=== PATIENT | female | born 1965 | race Caucasian/White ===

== ENCOUNTER 2016-12-25 17:05 | Inpatient (IN) | payer SELFPAY ==
[2016-12-25 17:10] VITALS: BMI 20.7
[2016-12-25] MEDS ORDERED: DUONEB 0.5 MG/3 MG ONE ×2 (17:18→18:56)
[2016-12-25] MEDS ORDERED: DUONEB 0.5 MG/3 MG NEB ONE ×2 (17:25→18:57)
--- NOTE | 2016-12-25 17:38 | DR.GENAD ---
HPI - PCP Primary Care Physician: arturo - HPI Comment HPI Comment: PATIENT SAID SHE IS ONE PACK PER DAY SMOKER FOR 20YRS. PAST SEVERAL DAYS PROGRESSIVE SOB AND COUGH THAT GOT WORSE TODAY. SHE WAS IN RESPITRATORY DISTRESS. O2 SAT WAS LOW IN ED. NO FEVER.PRODUCTIVE COUGH WITH YELLOW SPUTUM. - Complaint/Symptoms Chief Complaint Doctors Comments: INCREASING SOB, CHEST TIGHTNESS AND PRODUCTIVE COUGH FOR 4 DAYS. Chief Complaint:: patient stated she has been very short of breath for several days. today is worse and she has a bad cough, she did state she cut back smoking. - Nurses notes reviewed Nurses Notes Review: Yes - Source History Provided: Patient - Mode of Arrival Mode of Arrival: Ambulatory - Timing Onset of Chief Complaint: 12/21/16 Came on: Gradually - Duration Duration: Constant Duration: Days PMH - PMH Past Medical History: No Past Surgical History: Yes Surgical History: Hysterectomy - Family History History of Family Medical Conditions: No - Social History Does patient currently use any type of tobacco product: Yes Have you used tobacco products in the last 12 months: Yes Type of Tobacco Use: Cigarettes How many years tobacco product used: 25 Does any household member use tobacco: Yes Alcohol Use: Rarely Do you use any recreational Drugs:: No Lives With: Family Lives Where: Home - infectious screening In the last 2 months have you had wt loss of >10#?: NO Have you had fever, night sweats or hemotysis?: No Have you traveled outside the country in the last 6 months?: No Isolation: Standard ROS - Review of Systems Constitutional: Weakness, Fatigue. negative: Chills, Diaphoresis, Fever, Loss of Appetite Eyes: No Symptoms Reported. negative: Eye Pain, Discharge ENTM: Nose Congestion. negative: Ear Pain, Nose Discharge, Throat Pain Respiratoy: Productive Cough, Short of Breath, Wheezing. negative: Hemoptysis Cardiovascular: Chest Pain (TIGHTNESS). negative: Edema, Palpitations Gastrointestinal/Abdominal: No Symptoms Reported. negative: Abdominal Pain, Constipation, Diarrhea, Nausea, Vomiting Genitourinary: No Symptoms Reported. negative: Dysuria, Frequency, Hematuria Neurological: Weakness. negative: Headache, Dizziness Musculoskeletal: Muscle Pain Integumentary: No Symptoms Reported Hematologic/Lymphatic: No Symptoms Reported Endocrine: No Symptoms Reported All Other Systems: Reviewed and Negative PE - Vital Signs Vitals: Temperature 98.2 F Pulse Rate 95 Respiratory Rate 18 Blood Pressure 158/83 O2 Sat by Pulse Oximetry 90 - General Limitations: No Limitations General Appearance: Alert - Head Head Exam: Normal Inspection - Eyes Eye exam: Normal Appearance - ENT ENT Exam: Normal External Ear Exam External Ear Exam: Normal External Inspection TM/Canal Exam: Bilateral Normal Nose Exam: Normal Nose Exam Mouth Exam: Normal Inspection Throat Exam: Normal Inspection - Neck Neck Exam: Trachea Midline - Chest Chest Inspection: Symmetric Chest Wall Rise - Respiratory Respiratory Exam: Respiratory Distress Respiratory Exam: Bilateral Wheezing, Bilateral Rhonchi, Upper Wheezing, Upper Rhonchi, Lower Wheezing, Lower Rhonchi - Cardiovascular Cardiovascular Exam: Regular Rate, Normal Rhythm, Normal Heart Sounds - Abdominal Exam Abdominal Exam: Normal Bowel Sounds, Soft. negative: Tenderness - Extremities Extremities Exam: Normal Inspection - Back Back Exam: Normal Inspection - Neurologic Neurological Exam: Alert, Oriented X3 - Psychiatric Psychiatric Exam: Anxious - Skin Skin Exam: Normal Color MDM - Additional Information Additional Information Obtained From: Family - Differential Diagnosis Differential Diagnosis: COPD EXACERBATION, CHF, PNEUMONIA, BRONCHITIS Course - Treatment Treatment: SEE ORDERS. NEB TREATMENT AND IV SOLUMEDROL AND IV LEVAQUIN IN ED. - Reevaluation 1st: Improved - Consultation Consultation Comments: DISCUSS PATIENT WITH DR. CONWAY. HE WILL ADMIT PATIENT. - Education/Counseling Education/Counseling: Patient, Family, Education Educated On: Treatment, Diagnosis ROR - Labs Reviewed Laboratory Results Reviewed?: Yes Result Diagrams: 12/25/16 17:45 12/25/16 17:45 Laboratory: 12/25/16 17:32 Sputum - Expectorated Sputum - Final WBC 12.4 X10^3/uL (3.6-10.0) H 12/25/16 17:45 RBC 5.08 X10^6/uL (3.5-5.4) 12/25/16 17:45 Hgb 17.7 g/dL (12.0-16.0) H 12/25/16 17:45 Hct 51.2 % (36.0-47.0) H 12/25/16 17:45 MCV 100.9 fL (80.0-100.0) H 12/25/16 17:45 MCH 34.9 pg (27.0-34.0) H 12/25/16 17:45 MCHC 34.6 g/dL (33.0-35.0) 12/25/16 17:45 RDW 12.9 % (11.6-16.5) 12/25/16 17:45 Plt Count 138 X10^3/uL (150.0-450.0) L 12/25/16 17:45 MPV 10.3 fL (7.4-11.0) 12/25/16 17:45 Neut % 58.9 % (42.0-75.0) 12/25/16 17:45 Lymph % 31.2 % (21.0-51.0) 12/25/16 17:45 [place] % 8.5 % (0.0-13.0) 12/25/16 17:45 Eos % 0.6 % (0.9-2.9) L 12/25/16 17:45 Baso % 0.8 % (0.2-1.0) 12/25/16 17:45 Neut # 7.3 x10^3/uL (2.2-4.8) H 12/25/16 17:45 Lymph # 3.9 X10^3/uL (1.3-2.9) H 12/25/16 17:45 [place] # 1.1 x10^3/uL (0.3-0.8) H 12/25/16 17:45 Eos # 0.1 x10^3/uL (0.0-0.2) 12/25/16 17:45 Baso # 0.1 X10^3/uL (0.0-0.1) 12/25/16 17:45 Absolute Nucleated RBC 0.2 /100WBC 12/25/16 17:45 Sodium 138 mmol/L (136-145) 12/25/16 17:45 Corrected Sodium 138 mmol/L (136-145) 12/25/16 17:45 Potassium 3.7 mmol/L (3.5-5.1) 12/25/16 17:45 Chloride 104 mmol/L (98-107) 12/25/16 17:45 Carbon Dioxide 23.8 mmol/L (21-32) 12/25/16 17:45 BUN 12 mg/dL (7-18) 12/25/16 17:45 Creatinine 0.63 mg/dL (0.55-1.02) 12/25/16 17:45 Est GFR (MDRD) Af Amer > 60 (>60) 12/25/16 17:45 Est GFR (MDRD) Non-Af > 60 (>60) 12/25/16 17:45 Glucose 112 mg/dL (65-99) H 12/25/16 17:45 Calcium 9.5 mg/dL (8.5-10.1) 12/25/16 17:45 Corrected Calcium TNP 12/25/16 17:45 Total Bilirubin 1.40 mg/dL (0.2-1.0) H 12/25/16 17:45 AST 151 Units/L (15-37) H 12/25/16 17:45 ALT 174 Units/L (12-78) H 12/25/16 17:45 Alkaline Phosphatase 161 Units/L (46-116) H 12/25/16 17:45 B-Natriuretic Peptide 20.8 pg/mL (0-79) 12/25/16 17:45 Total Protein 9.1 g/dL (6.4-8.2) H 12/25/16 17:45 Albumin 4.1 g/dL (3.4-5.0) 12/25/16 17:45 Globulin 5.0 g/dL (2.5-4.5) H 12/25/16 17:45 Albumin/Globulin Ratio 0.8 Ratio (1.1-2.1) L 12/25/16 17:45 Amylase 50 Units/L (25-115) 12/25/16 17:45 Lipase 112 Units/L (73-393) 12/25/16 17:45 - XRAY XRAY Interpreted by: Radiologist XRAY Findings: REPORT DISCUSS WITH PATIENT. - Diagnosis Discharge Problem: COPD with acute bronchitis, Respiratory distress - Discharge Plan Disposition: ADMITTED INPATIENT Condition: Stable - Follow ups/Referrals - Instructions
[2016-12-25 18:03] LABS: BASOPHILS # (AUTO) 0.1 X10^3/uL (0.0-0.1); BASOPHILS % (AUTO) 0.8 % (0.2-1.0); EOSINOPHILS # (AUTO) 0.1 x10^3/uL (0.0-0.2); EOSINOPHILS % (AUTO) 0.6 % (0.9-2.9); HEMATOCRIT 51.2 % (36.0-47.0); HEMOGLOBIN 17.7 g/dL (12.0-16.0); LYMPHOCYTES # (AUTO) 3.9 X10^3/uL (1.3-2.9); LYMPHOCYTES % (AUTO) 31.2 % (21.0-51.0); MEAN CORPUSCULAR HEMOGLOBIN 34.9 pg (27.0-34.0); MEAN CORPUSCULAR HGB CONC 34.6 g/dL (33.0-35.0); MEAN CORPUSCULAR VOLUME 100.9 fL (80.0-100.0); MEAN PLATELET VOLUME 10.3 fL (7.4-11.0); MONOCYTES # (AUTO) 1.1 x10^3/uL (0.3-0.8); MONOCYTES % (AUTO) 8.5 % (0.0-13.0); NEUTROPHILS # (AUTO) 7.3 x10^3/uL (2.2-4.8); NEUTROPHILS % (AUTO) 58.9 % (42.0-75.0); PLATELET COUNT 138 X10^3/uL (150.0-450.0); RED BLOOD COUNT 5.08 X10^6/uL (3.5-5.4); RED CELL DISTRIBUTION WIDTH 12.9 % (11.6-16.5); WHITE BLOOD COUNT 12.4 X10^3/uL (3.6-10.0)
--- NOTE | 2016-12-25 18:03 | RAD ---
HISTORY: Possible pneumonia, cough, shortness of breath Study: Two view chest Comparison: None Findings: Lungs are mildly hyperinflated. The lungs are clear without consolidation, effusion or pneumothorax. The cardiac and mediastinal contours are within normal limits. The soft tissues are unremarkable. IMPRESSION: 1. No acute cardiopulmonary abnormality. Reported By:
[2016-12-25 18:15] LABS: ALANINE AMINOTRANSFERASE 174 Units/L (12-78); ALBUMIN 4.1 g/dL (3.4-5.0); ALKALINE PHOSPHATASE 161 Units/L (46-116); ASPARTATE AMINO TRANSFERASE 151 Units/L (15-37); BLOOD UREA NITROGEN 12 mg/dL (7-18); CALCIUM 9.5 mg/dL (8.5-10.1); CARBON DIOXIDE 23.8 mmol/L (21-32); CHLORIDE 104 mmol/L (98-107); COR NA(FOR HYPERGLY) 138 mmol/L (136-145); CREATININE 0.63 mg/dL (0.55-1.02); GLUCOSE 112 mg/dL (65-99); SODIUM 138 mmol/L (136-145); TOTAL PROTEIN 9.1 g/dL (6.4-8.2); eGFR BLACK RACES > 60 (>60); eGFR NON BLACK RACES > 60 (>60)
[2016-12-25] MEDS ORDERED: SOLU-Medrol 125 MG VIAL IVP ONE (18:52)
[2016-12-25] MEDS ORDERED: LEVAQUIN PREMIX IV 500 MG 500 MG/100 ML BAG IV ONE ×2 (18:54→19:00)
[2016-12-25] MEDS ORDERED: SOLU-Medrol 125 MG VIAL ONE (19:00)
[2016-12-25 19:03] LABS: AMYLASE 50 Units/L (25-115); LIPASE 112 Units/L (73-393)
[2016-12-25] MEDS: DUONEB 0.5 MG/3 MG NEB SCH ×2 (23:09→23:57)
[2016-12-26] MEDS: ULTRAM PO PRN (00:03)
[2016-12-26] MEDS: DUONEB 0.5 MG/3 MG NEB SCH ×5 (04:17→21:38)
[2016-12-26 06:24] LABS: BASOPHILS % (AUTO) 0.3 % (0.2-1.0); HEMATOCRIT 43.7 % (36.0-47.0); HEMOGLOBIN 15.4 g/dL (12.0-16.0); LYMPHOCYTES # (AUTO) 1.5 X10^3/uL (1.3-2.9); LYMPHOCYTES % (AUTO) 16.6 % (21.0-51.0); MEAN CORPUSCULAR HEMOGLOBIN 35.3 pg (27.0-34.0); MEAN CORPUSCULAR HGB CONC 35.2 g/dL (33.0-35.0); MEAN CORPUSCULAR VOLUME 100.3 fL (80.0-100.0); MEAN PLATELET VOLUME 10.6 fL (7.4-11.0); MONOCYTES # (AUTO) 0.5 x10^3/uL (0.3-0.8); MONOCYTES % (AUTO) 5.6 % (0.0-13.0); NEUTROPHILS # (AUTO) 6.9 x10^3/uL (2.2-4.8); NEUTROPHILS % (AUTO) 77.5 % (42.0-75.0); PLATELET COUNT 98 X10^3/uL (150.0-450.0); RED BLOOD COUNT 4.36 X10^6/uL (3.5-5.4); RED CELL DISTRIBUTION WIDTH 12.8 % (11.6-16.5); WHITE BLOOD COUNT 8.9 X10^3/uL (3.6-10.0)
[2016-12-26] MEDS: SOLU-Medrol 40 MG VIAL IVP SCH ×2 (08:44→17:37)
[2016-12-26] MEDS: LEVAQUIN PREMIX IV 500 MG 500 MG/100 ML BAG IV SCH (08:45)
[2016-12-26] MEDS ORDERED: NS 250 ML IV 250 ML IV ONE (08:46)
[2016-12-26 10:40] LABS: BILIRUBIN,URINE NEGATIVE (NEGATIVE); BLOOD/HEMOGLOBIN,URINE 1+ (NEGATIVE); GLUCOSE, URINE NEGATIVE (NEGATIVE); KETONES,URINE NEGATIVE (NEGATIVE); LEUKOCYTE ESTERASE ,URINE NEGATIVE (NEGATIVE); NITRITES,URINE NEGATIVE (NEGATIVE); PROTEIN,URINE 1+ (NEGATIVE); UROBILINOGEN,URINE 3+ (NORMAL)
[2016-12-26 11:05] LABS: APPEARANCE,URINE CLEAR (CLEAR); BACTERIA,URINE TRACE /HPF (NEGATIVE); COLOR,URINE AMBER (YELLOW); RBC,URINE RARE /HPF (NEGATIVE); SQUAMOUS EPITHELIAL CELL,UR FEW /HPF (NEGATIVE)
[2016-12-26] MEDS ORDERED: TUSSIONEX PENNKINETIC SUSP PO PRN (18:57)
--- NOTE | 2016-12-26 19:03 | DR.H&P ---
H&P - History & Physical for Day of: H&P Date: 12/25/16 - Chief Complaint Chief Complaint: SOB - Allergies Allergies/Adverse Reactions: Allergies Allergy/AdvReac Type Severity Reaction Status Date / Time No Known Drug Allergy Allergy Verified 12/25/16 17:06 - History of Present Illness History of Present Illness: 51 WF ADMITTED FROM ER AFTER PRESENTING WITH CO CCC WITH SOB. PT HAS COPD, USING INHALER AT HOME WITHOUT IMPROVEMENT. PT ALSO CO NAUSEA WITH EPIGASTRIC PAIN, DIFFICULTY WITH KEEPING FOOD DOWN, PT WILL "SPIT UP " FOOD, OR FEELS LIKE IT GETS STUCK IN THROAT. PLAN TO ADMIT FOR TREATMENT OF COPD EXACERBATION. WILL REPEAT AM LABS, IV ATBX, RESP THERAPY - Past Medical History Past Medical History: Anxiety, Hypertension - Past Surgical History Surgical History: Hysterectomy - Social History Does patient currently use any type of tobacco product: Yes Have you used tobacco products in the last 12 months: Yes Type of Tobacco Use: Cigarettes How many years tobacco product used: 25 Does any household member use tobacco: Yes Alcohol Use: DAILY Drug Use: None - Medications Home Medications: NK [NK] 12/25/16 [History Confirmed 12/26/16] - Review of Systems Constitutional: Chills, Weakness Eyes: No Symptoms Reported ENT: Throat Pain Respiratory: Cough, Shortness of Breath, Wheezing Cardiovascular: No Symptoms Reported Gastrointestinal: Nausea, Abdominal Pain Genitourinary: No Symptoms Reported Musculoskeletal: No Symptoms Reported Skin: No Symptoms Reported Neurological: No Symptoms Reported - Physical Exam Vital Signs: Temperature 98.2 F Pulse Rate [Right Radial] 96 Pulse Rate 82 Respiratory Rate 20 Blood Pressure [Right Arm] 137/78 O2 Sat by Pulse Oximetry 91 Oriented: Normal Eyes: Normal Ear: Normal Nose: Normal Throat: Dry Respiratory: Wheezes Throughout Cardiovascular: Normal : Normal Auscultation: Bowel Sounds: Normal Palpation: Normal Tenderness: RUQ, Epigastric Skin: Normal Musculoskeletal: Normal Psychiatric: Anxiety Speech Pattern: Clear, Appropriate - Assessment/Plan (1) GERD (gastroesophageal reflux disease) Qualifiers: Esophagitis presence: E Status: Acute Plan: ADMIT, RESP THERAPY, IV ATBX. BLOOD AND SPUTUM CULTURES. MONITOR, SUPPLEMENTAL O2 (2) COPD with acute bronchitis Status: Acute (3) Respiratory distress Status: Acute
[2016-12-26] MEDS: RESTORIL CAP 15 MG PO PRN (21:15)
[2016-12-26] MEDS: PROTONIX INJ 40 MG VIAL IVP SCH (21:15)
[2016-12-27] MEDS: SOLU-Medrol 40 MG VIAL IVP SCH ×3 (00:22→16:58)
[2016-12-27] MEDS: DUONEB 0.5 MG/3 MG NEB SCH ×6 (01:51→20:36)
[2016-12-27 06:18] LABS: BASOPHILS % (AUTO) 0.1 % (0.2-1.0); HEMATOCRIT 43.7 % (36.0-47.0); HEMOGLOBIN 15.2 g/dL (12.0-16.0); LYMPHOCYTES # (AUTO) 1.1 X10^3/uL (1.3-2.9); LYMPHOCYTES % (AUTO) 11.9 % (21.0-51.0); MEAN CORPUSCULAR HGB CONC 34.7 g/dL (33.0-35.0); MEAN CORPUSCULAR VOLUME 100.9 fL (80.0-100.0); MEAN PLATELET VOLUME 10.9 fL (7.4-11.0); MONOCYTES # (AUTO) 0.3 x10^3/uL (0.3-0.8); MONOCYTES % (AUTO) 3.7 % (0.0-13.0); NEUTROPHILS # (AUTO) 7.7 x10^3/uL (2.2-4.8); NEUTROPHILS % (AUTO) 84.3 % (42.0-75.0); PLATELET COUNT 98 X10^3/uL (150.0-450.0); RED BLOOD COUNT 4.33 X10^6/uL (3.5-5.4); RED CELL DISTRIBUTION WIDTH 12.7 % (11.6-16.5); WHITE BLOOD COUNT 9.1 X10^3/uL (3.6-10.0)
--- NOTE | 2016-12-27 06:27 | RAD ---
HISTORY: COPD, bronchitis, respiratory distress Study: Chest one view Comparison: December 25, 2016 Findings: The heart is within normal limits in size. The sherman are normal. The lungs are mildly hyperinflated b ut free of acute alveolar infiltrates. No pleural effusions are identified. The bony thorax is unrem arkable. IMPRESSION: Lungs mildly hyperinflated but clear Reported By:
[2016-12-27 06:31] LABS: ALANINE AMINOTRANSFERASE 134 Units/L (12-78); ALBUMIN 3.3 g/dL (3.4-5.0); ALKALINE PHOSPHATASE 151 Units/L (46-116); ASPARTATE AMINO TRANSFERASE 85 Units/L (15-37); BLOOD UREA NITROGEN 12 mg/dL (7-18); CALCIUM 8.9 mg/dL (8.5-10.1); CARBON DIOXIDE 22.3 mmol/L (21-32); CHLORIDE 105 mmol/L (98-107); COR CA(FOR HYPOALB) 9.5 mg/dL (8.5-10.1); COR NA(FOR HYPERGLY) 142 mmol/L (136-145); CREATININE 0.72 mg/dL (0.55-1.02); GLUCOSE 181 mg/dL (65-99); SODIUM 140 mmol/L (136-145); TOTAL PROTEIN 7.5 g/dL (6.4-8.2); eGFR BLACK RACES > 60 (>60); eGFR NON BLACK RACES > 60 (>60)
--- NOTE | 2016-12-27 07:01 | US ---
HISTORY: Right upper quadrant and epigastric pain Study: Right upper quadrant ultra sound Comparison: None Technique: Multiple grayscale sonographic images were obtained. Findings: The liver is normal in size and configuration without cyst mass or biliary ductal dilatation. No gal lstones are present within the gallbladder. Gallbladder wall thickness was normal. The common duct m easured 3 millimeters. The right kidney measured 10.1 x 5.9 x 4.3 centimeters and demonstrated no so lid masses, hydronephrosis, stones, or perinephric fluid collections. The pancreas was not well demo nstrated. IMPRESSION: No significant abnormality identified Reported By:
[2016-12-27] MEDS: LEVAQUIN PREMIX IV 500 MG 500 MG/100 ML BAG IV SCH (08:59)
[2016-12-27] MEDS: PROTONIX INJ 40 MG VIAL IVP SCH (08:59)
--- NOTE | 2016-12-27 13:00 | PCM.PROG ---
Progress Note - Progress Note for Day of Date: 12/26/16 - Subjective Subjective: SHORTNESS OF BREATH, N/V - Past Medical Family Social History Past Med/Fam/Surg Hx: No changes since H&P Allergies: Allergies No Known Drug Allergy Allergy (Verified 12/25/16 17:06) - Review of Systems ROS: No change since H&P - Vital Signs and I&O's Vital Signs: Temperature 97.7 F Pulse Rate [Right Radial] 94 Pulse Rate 86 Respiratory Rate 20 Blood Pressure [Right Arm] 134/73 O2 Sat by Pulse Oximetry 93 Intake and Output: Intake & Output 12/25/16 12/26/16 12/27/16 12/28/16 11:59 11:59 11:59 11:59 Intake Total 240 1040 Balance 240 1040 - Physical Exam Oriented: Normal Eyes: Normal Ear: Normal Nose: Normal Throat: Dry Respiratory: Diminished, Wheezes, Rhonchi Cardiovascular: Normal : Normal Auscultation: Bowel Sounds: Normal Tenderness: RUQ, Epigastric Skin: Normal Musculoskeletal: Normal Psychiatric: Anxiety Speech Pattern: Clear, Appropriate - Laboratory and Diagnostics Result Diagrams: 12/27/16 05:15 12/27/16 05:15 Labs: Laboratory WBC 9.1 X10^3/uL (3.6-10.0) 12/27/16 05:15 RBC 4.33 X10^6/uL (3.5-5.4) 12/27/16 05:15 Hgb 15.2 g/dL (12.0-16.0) 12/27/16 05:15 Hct 43.7 % (36.0-47.0) 12/27/16 05:15 MCV 100.9 fL (80.0-100.0) H 12/27/16 05:15 MCH 35.0 pg (27.0-34.0) H 12/27/16 05:15 MCHC 34.7 g/dL (33.0-35.0) 12/27/16 05:15 RDW 12.7 % (11.6-16.5) 12/27/16 05:15 Plt Count 98 X10^3/uL (150.0-450.0) L 12/27/16 05:15 MPV 10.9 fL (7.4-11.0) 12/27/16 05:15 Neut % 84.3 % (42.0-75.0) H 12/27/16 05:15 Lymph % 11.9 % (21.0-51.0) L 12/27/16 05:15 [place] % 3.7 % (0.0-13.0) 12/27/16 05:15 Eos % 0.0 % (0.9-2.9) L 12/27/16 05:15 Baso % 0.1 % (0.2-1.0) L 12/27/16 05:15 Neut # 7.7 x10^3/uL (2.2-4.8) H 12/27/16 05:15 Lymph # 1.1 X10^3/uL (1.3-2.9) L 12/27/16 05:15 [place] # 0.3 x10^3/uL (0.3-0.8) 12/27/16 05:15 Eos # 0.0 x10^3/uL (0.0-0.2) 12/27/16 05:15 Baso # 0.0 X10^3/uL (0.0-0.1) 12/27/16 05:15 Absolute Nucleated RBC 0.0 /100WBC 12/27/16 05:15 Sodium 140 mmol/L (136-145) 12/27/16 05:15 Corrected Sodium 142 mmol/L (136-145) 12/27/16 05:15 Potassium 3.9 mmol/L (3.5-5.1) 12/27/16 05:15 Chloride 105 mmol/L (98-107) 12/27/16 05:15 Carbon Dioxide 22.3 mmol/L (21-32) 12/27/16 05:15 BUN 12 mg/dL (7-18) 12/27/16 05:15 Creatinine 0.72 mg/dL (0.55-1.02) 12/27/16 05:15 Est GFR (MDRD) Af Amer > 60 (>60) 12/27/16 05:15 Est GFR (MDRD) Non-Af > 60 (>60) 12/27/16 05:15 Glucose 181 mg/dL (65-99) H 12/27/16 05:15 Calcium 8.9 mg/dL (8.5-10.1) 12/27/16 05:15 Corrected Calcium 9.5 mg/dL (8.5-10.1) 12/27/16 05:15 Total Bilirubin 0.50 mg/dL (0.2-1.0) 12/27/16 05:15 AST 85 Units/L (15-37) H 12/27/16 05:15 ALT 134 Units/L (12-78) H 12/27/16 05:15 Alkaline Phosphatase 151 Units/L (46-116) H 12/27/16 05:15 B-Natriuretic Peptide 20.8 pg/mL (0-79) 12/25/16 17:45 Total Protein 7.5 g/dL (6.4-8.2) 12/27/16 05:15 Albumin 3.3 g/dL (3.4-5.0) L 12/27/16 05:15 Globulin 4.2 g/dL (2.5-4.5) 12/27/16 05:15 Albumin/Globulin Ratio 0.8 Ratio (1.1-2.1) L 12/27/16 05:15 Amylase 50 Units/L (25-115) 12/25/16 17:45 Lipase 112 Units/L (73-393) 12/25/16 17:45 Specimen Type Clean catch urine 12/26/16 10:16 Urine Color Swetha (YELLOW) 12/26/16 10:16 Urine Appearance Clear (CLEAR) 12/26/16 10:16 Urine pH 5.0 (5.0 - 8.0) 12/26/16 10:16 Ur Specific [place] 1.025 (1.000-1.030) 12/26/16 10:16 Urine Protein 1+ (NEGATIVE) 12/26/16 10:16 Urine Glucose (UA) Negative (NEGATIVE) 12/26/16 10:16 Urine Ketones Negative (NEGATIVE) 12/26/16 10:16 Urine Occult Blood 1+ (NEGATIVE) 12/26/16 10:16 Urine Nitrite Negative (NEGATIVE) 12/26/16 10:16 Urine Bilirubin Negative (NEGATIVE) 12/26/16 10:16 Urine Urobilinogen 3+ (NORMAL) 12/26/16 10:16 Ur Leukocyte Esterase Negative (NEGATIVE) 12/26/16 10:16 Urine RBC Rare /HPF (NEGATIVE) 12/26/16 10:16 Urine WBC None seen /HPF (NEGATIVE) 12/26/16 10:16 Ur Squamous Epith Cells Few /HPF (NEGATIVE) 12/26/16 10:16 Urine Bacteria Trace /HPF (NEGATIVE) 12/26/16 10:16 Ur Culture Indicated? No/not indicated 12/26/16 10:16 Urine Opiates Screen Negative (NEG=<300) 12/26/16 10:16 Urine Methadone Screen Negative (NEG=<300) 12/26/16 10:16 Ur Barbiturates Screen Negative (NEG=<200) 12/26/16 10:16 Ur Phencyclidine Scrn Negative (NEG=<25) 12/26/16 10:16 Ur Amphetamines Screen Negative (NEG=<1000) 12/26/16 10:16 U Benzodiazepines Scrn Negative (NEG=<200) 12/26/16 10:16 Urine Cocaine Screen Negative (NEG=<300) 12/26/16 10:16 U Marijuana (THC) Screen Positive (NEG=<50) A 12/26/16 10:16 - Plan (1) GERD (gastroesophageal reflux disease) Status: Acute Qualifiers: Esophagitis presence: E Plan: CONTINUE RESP THERAPY, IV ATBX. BLOOD AND SPUTUM CULTURES PENDING. MONITOR, SUPPLEMENTAL O2 (2) COPD with acute bronchitis Status: Acute (3) Respiratory distress Status: Acute Plan: CT CHEST FOR SOB (4) Epigastric abdominal pain Status: Acute Plan: GB US Q AM (5) Nausea & vomiting Status: Acute Qualifiers: Vomiting type: V Vomiting Intractability: V Plan: SYMPTOM CONTROL, PPI. GB STUDIES
--- NOTE | 2016-12-27 13:08 | PCM.PROG ---
Progress Note - Progress Note for Day of Date: 12/27/16 - Subjective Subjective: SHORTNESS OF BREATH IMPROVING, N/V, RUQ PAIN AND DIARRHEA - Past Medical Family Social History Past Med/Fam/Surg Hx: No changes since H&P Allergies: Allergies No Known Drug Allergy Allergy (Verified 12/25/16 17:06) - Review of Systems ROS: No change since H&P - Vital Signs and I&O's Vital Signs: Temperature 97.7 F Pulse Rate [Right Radial] 94 Pulse Rate 86 Respiratory Rate 20 Blood Pressure [Right Arm] 134/73 O2 Sat by Pulse Oximetry 93 Intake and Output: Intake & Output 12/25/16 12/26/16 12/27/16 12/28/16 11:59 11:59 11:59 11:59 Intake Total 240 1040 Balance 240 1040 - Physical Exam Oriented: Normal Eyes: Normal Ear: Normal Nose: Normal Throat: Dry Respiratory: Diminished, Wheezes, Rhonchi Cardiovascular: Normal : Normal Auscultation: Bowel Sounds: Normal Tenderness: RUQ, Epigastric Skin: Normal Musculoskeletal: Normal Psychiatric: Anxiety Speech Pattern: Clear, Appropriate - Laboratory and Diagnostics Result Diagrams: 12/27/16 05:15 12/27/16 05:15 Labs: Laboratory WBC 9.1 X10^3/uL (3.6-10.0) 12/27/16 05:15 RBC 4.33 X10^6/uL (3.5-5.4) 12/27/16 05:15 Hgb 15.2 g/dL (12.0-16.0) 12/27/16 05:15 Hct 43.7 % (36.0-47.0) 12/27/16 05:15 MCV 100.9 fL (80.0-100.0) H 12/27/16 05:15 MCH 35.0 pg (27.0-34.0) H 12/27/16 05:15 MCHC 34.7 g/dL (33.0-35.0) 12/27/16 05:15 RDW 12.7 % (11.6-16.5) 12/27/16 05:15 Plt Count 98 X10^3/uL (150.0-450.0) L 12/27/16 05:15 MPV 10.9 fL (7.4-11.0) 12/27/16 05:15 Neut % 84.3 % (42.0-75.0) H 12/27/16 05:15 Lymph % 11.9 % (21.0-51.0) L 12/27/16 05:15 [place] % 3.7 % (0.0-13.0) 12/27/16 05:15 Eos % 0.0 % (0.9-2.9) L 12/27/16 05:15 Baso % 0.1 % (0.2-1.0) L 12/27/16 05:15 Neut # 7.7 x10^3/uL (2.2-4.8) H 12/27/16 05:15 Lymph # 1.1 X10^3/uL (1.3-2.9) L 12/27/16 05:15 [place] # 0.3 x10^3/uL (0.3-0.8) 12/27/16 05:15 Eos # 0.0 x10^3/uL (0.0-0.2) 12/27/16 05:15 Baso # 0.0 X10^3/uL (0.0-0.1) 12/27/16 05:15 Absolute Nucleated RBC 0.0 /100WBC 12/27/16 05:15 Sodium 140 mmol/L (136-145) 12/27/16 05:15 Corrected Sodium 142 mmol/L (136-145) 12/27/16 05:15 Potassium 3.9 mmol/L (3.5-5.1) 12/27/16 05:15 Chloride 105 mmol/L (98-107) 12/27/16 05:15 Carbon Dioxide 22.3 mmol/L (21-32) 12/27/16 05:15 BUN 12 mg/dL (7-18) 12/27/16 05:15 Creatinine 0.72 mg/dL (0.55-1.02) 12/27/16 05:15 Est GFR (MDRD) Af Amer > 60 (>60) 12/27/16 05:15 Est GFR (MDRD) Non-Af > 60 (>60) 12/27/16 05:15 Glucose 181 mg/dL (65-99) H 12/27/16 05:15 Calcium 8.9 mg/dL (8.5-10.1) 12/27/16 05:15 Corrected Calcium 9.5 mg/dL (8.5-10.1) 12/27/16 05:15 Total Bilirubin 0.50 mg/dL (0.2-1.0) 12/27/16 05:15 AST 85 Units/L (15-37) H 12/27/16 05:15 ALT 134 Units/L (12-78) H 12/27/16 05:15 Alkaline Phosphatase 151 Units/L (46-116) H 12/27/16 05:15 B-Natriuretic Peptide 20.8 pg/mL (0-79) 12/25/16 17:45 Total Protein 7.5 g/dL (6.4-8.2) 12/27/16 05:15 Albumin 3.3 g/dL (3.4-5.0) L 12/27/16 05:15 Globulin 4.2 g/dL (2.5-4.5) 12/27/16 05:15 Albumin/Globulin Ratio 0.8 Ratio (1.1-2.1) L 12/27/16 05:15 Amylase 50 Units/L (25-115) 12/25/16 17:45 Lipase 112 Units/L (73-393) 12/25/16 17:45 Specimen Type Clean catch urine 12/26/16 10:16 Urine Color Swetha (YELLOW) 12/26/16 10:16 Urine Appearance Clear (CLEAR) 12/26/16 10:16 Urine pH 5.0 (5.0 - 8.0) 12/26/16 10:16 Ur Specific [place] 1.025 (1.000-1.030) 12/26/16 10:16 Urine Protein 1+ (NEGATIVE) 12/26/16 10:16 Urine Glucose (UA) Negative (NEGATIVE) 12/26/16 10:16 Urine Ketones Negative (NEGATIVE) 12/26/16 10:16 Urine Occult Blood 1+ (NEGATIVE) 12/26/16 10:16 Urine Nitrite Negative (NEGATIVE) 12/26/16 10:16 Urine Bilirubin Negative (NEGATIVE) 12/26/16 10:16 Urine Urobilinogen 3+ (NORMAL) 12/26/16 10:16 Ur Leukocyte Esterase Negative (NEGATIVE) 12/26/16 10:16 Urine RBC Rare /HPF (NEGATIVE) 12/26/16 10:16 Urine WBC None seen /HPF (NEGATIVE) 12/26/16 10:16 Ur Squamous Epith Cells Few /HPF (NEGATIVE) 12/26/16 10:16 Urine Bacteria Trace /HPF (NEGATIVE) 12/26/16 10:16 Ur Culture Indicated? No/not indicated 12/26/16 10:16 Urine Opiates Screen Negative (NEG=<300) 12/26/16 10:16 Urine Methadone Screen Negative (NEG=<300) 12/26/16 10:16 Ur Barbiturates Screen Negative (NEG=<200) 12/26/16 10:16 Ur Phencyclidine Scrn Negative (NEG=<25) 12/26/16 10:16 Ur Amphetamines Screen Negative (NEG=<1000) 12/26/16 10:16 U Benzodiazepines Scrn Negative (NEG=<200) 12/26/16 10:16 Urine Cocaine Screen Negative (NEG=<300) 12/26/16 10:16 U Marijuana (THC) Screen Positive (NEG=<50) A 12/26/16 10:16 - Plan (1) COPD with acute bronchitis Status: Acute Plan: IV ATBX, IV STEROIDS. RESP THERAPY, PULMONARY TOILETING. SUPPLEMENTAL O2 (2) GERD (gastroesophageal reflux disease) Status: Acute Qualifiers: Esophagitis presence: E Plan: PPI, NAUSEA CONTROL (3) Respiratory distress Status: Acute Plan: CT CHEST FOR SOB (4) Epigastric abdominal pain Status: Acute Plan: GB US Q AM (5) Nausea & vomiting Status: Acute Qualifiers: Vomiting type: V Vomiting Intractability: V Plan: SYMPTOM CONTROL, PPI. GB STUDIES
[2016-12-27] MEDS: ULTRAM PO PRN (20:51)
[2016-12-27] MEDS: RESTORIL CAP 15 MG PO PRN (20:52)
[2016-12-28] MEDS: DUONEB 0.5 MG/3 MG NEB SCH ×6 (00:38→21:13)
[2016-12-28] MEDS: SOLU-Medrol 40 MG VIAL IVP SCH ×3 (00:56→16:31)
[2016-12-28] MEDS: PROTONIX INJ 40 MG VIAL IVP SCH ×2 (09:12→20:56)
[2016-12-28] MEDS: ROBITUSSIN DM PO SCH ×4 (09:14→20:55)
[2016-12-28] MEDS: LEVAQUIN PREMIX IV 500 MG 500 MG/100 ML BAG IV SCH (09:14)
--- NOTE | 2016-12-28 13:31 | NM ---
HISTORY: Right upper quadrant pain, food intolerance, and nausea, vomiting, diarrhea. Study: Nuclear medicine HIDA scan with ejection fraction Comparison: Right upper quadrant ultrasound dated December 27, 2016. Technique: Multiple scintigraphic images of the abdomen were obtained the intravenous administration of 5.2 mCi of technetium labeled Choletec. Following distention of the gallbladder with radiotracer patient was given an 8 oz bottle of Ensure. An estimated gallbladder ejection fraction was calculated based on the physiologic response of thi s infusion. Findings: Homogeneous uptake of radiotracer is seen throughout the liver. This intrabiliary ductal system is observed normally. The common hepatic and common bile duct grossly appear unremarkable with normal biliary-bowel transit. The gallbladder is observed to fill normally. After the bottle of Ensure, a normal gallbladder ejection fraction of 55% (normal > 35%) is observed . IMPRESSION: 1. Normal hepatobiliary imaging scan. 2. Normal gallbladder ejection fraction. Reported By:
[2016-12-28] MEDS ORDERED: LR 1000 ML IV 1,000 ML IV ONE (15:27)
[2016-12-28] MEDS ORDERED: DIPRIVAN VIAL 20 ML ONE (15:36)
[2016-12-28] MEDS ORDERED: XYLOCAINE 2 % (PLAIN) ONE (15:36)
[2016-12-28] MEDS ORDERED: DIPRIVAN VIAL 10 ML ONE (15:49)
[2016-12-28] MEDS: RESTORIL CAP 15 MG PO PRN (20:55)
[2016-12-28] MEDS: ULTRAM PO PRN (20:55)
[2016-12-29] MEDS: DUONEB 0.5 MG/3 MG NEB SCH ×4 (00:49→12:22)
[2016-12-29] MEDS: SOLU-Medrol 40 MG VIAL IVP SCH ×2 (01:15→08:49)
[2016-12-29 05:35] LABS: ALANINE AMINOTRANSFERASE 196 Units/L (12-78); ALKALINE PHOSPHATASE 140 Units/L (46-116); ASPARTATE AMINO TRANSFERASE 128 Units/L (15-37); BASOPHILS % (AUTO) 0.1 % (0.2-1.0); BLOOD UREA NITROGEN 11 mg/dL (7-18); CALCIUM 8.6 mg/dL (8.5-10.1); CARBON DIOXIDE 24.4 mmol/L (21-32); CHLORIDE 106 mmol/L (98-107); COR CA(FOR HYPOALB) 9.4 mg/dL (8.5-10.1); COR NA(FOR HYPERGLY) 141 mmol/L (136-145); CREATININE 0.59 mg/dL (0.55-1.02); GLUCOSE 147 mg/dL (65-99); HEMATOCRIT 42.1 % (36.0-47.0); HEMOGLOBIN 14.4 g/dL (12.0-16.0); LYMPHOCYTES % (AUTO) 12.8 % (21.0-51.0); MEAN CORPUSCULAR HEMOGLOBIN 34.8 pg (27.0-34.0); MEAN CORPUSCULAR HGB CONC 34.2 g/dL (33.0-35.0); MEAN CORPUSCULAR VOLUME 101.5 fL (80.0-100.0); MEAN PLATELET VOLUME 10.4 fL (7.4-11.0); MONOCYTES # (AUTO) 0.4 x10^3/uL (0.3-0.8); MONOCYTES % (AUTO) 5.4 % (0.0-13.0); NEUTROPHILS # (AUTO) 6.2 x10^3/uL (2.2-4.8); NEUTROPHILS % (AUTO) 81.7 % (42.0-75.0); PLATELET COUNT 92 X10^3/uL (150.0-450.0); RED BLOOD COUNT 4.14 X10^6/uL (3.5-5.4); RED CELL DISTRIBUTION WIDTH 13.2 % (11.6-16.5); SODIUM 140 mmol/L (136-145); TOTAL PROTEIN 6.7 g/dL (6.4-8.2); WHITE BLOOD COUNT 7.5 X10^3/uL (3.6-10.0); eGFR BLACK RACES > 60 (>60); eGFR NON BLACK RACES > 60 (>60)
[2016-12-29] MEDS: PROTONIX INJ 40 MG VIAL IVP SCH (08:48)
[2016-12-29] MEDS: LEVAQUIN PREMIX IV 500 MG 500 MG/100 ML BAG IV SCH (08:48)
[2016-12-29] MEDS: ROBITUSSIN DM PO SCH ×2 (08:49→13:28)
[2016-12-29 12:34] VITALS: BP 130/71
== END 2016-12-29 15:48 | disposition home or self-care (01) | DRG 192 ==
LOC: ER 17:28 → OBS 20:40 → OBSVTOIN 12-27 08:30 → INTOOBSV 12-27 16:26 → OBSVTOIN 12-27 16:26 → MED/SURG 12-27 17:55
PROVIDERS: ADMIT Internal Medicine; ATTEND Internal Medicine
PROC: 0D757ZZ Dilation of Esophagus, Via Natural or Artificial Opening (ICD-10-PCS; 2016-12-28)
PROC: 0DB68ZX Excision of Stomach, Via Natural or Artificial Opening Endoscopic, Diagnostic (ICD-10-PCS; principal; 2016-12-28 19:00)
DX: J44.1 Chronic obstructive pulmonary disease with (acute) exacerbation (principal); J20.9 Acute bronchitis, unspecified; J44.0 Chronic obstructive pulmonary disease with (acute) lower respiratory infection; Z72.0 Tobacco use; R07.89 Other chest pain; J20.8 Acute bronchitis due to other specified organisms; R06.02 Shortness of breath; R10.13 Epigastric pain; F41.8 Other specified anxiety disorders; I10 Essential (primary) hypertension; K21.9 Gastro-esophageal reflux disease without esophagitis; R11.2 Nausea with vomiting, unspecified; B95.3 Streptococcus pneumoniae as the cause of diseases classified elsewhere
CPT/HCPCS: 36415; 71010; 71020; 76705; 78227; 80053; 80307; 81001; 82150; 83690; 83880; 85025; 87040; 87070; 87077; 87186; 87205; 93005; 93010; 94640; 94760; 96365; 96374; 96375; 99284; A4222; C9113; A4217; G0378; G0434; J1956; J2001; J2920; J2930; J3490; J7120; J7620

== ENCOUNTER 2017-06-12 10:39 | Observation (INO) | payer SELFPAY ==
[2017-06-12 10:47] VITALS: BMI 20.7
[2017-06-12] MEDS ORDERED: SOLU-Medrol 125 MG VIAL ONE (11:09)
[2017-06-12] MEDS ORDERED: DUONEB 0.5 MG/3 MG ONE (11:12)
[2017-06-12] MEDS ORDERED: SOLU-Medrol 125 MG VIAL IVP ONE (11:13)
[2017-06-12] MEDS ORDERED: DUONEB 0.5 MG/3 MG NEB ONE ×2 (11:13→15:24)
--- NOTE | 2017-06-12 11:18 | DR.SOBA ---
HPI - Time Seen Time seen: 11:15 - Primary Care Physician Primary Care Physician: barney - HPI Comment HPI Comment: HISTORY BELOW. - Complaints Chief Complaint Doctors Comments: INCREASING SOB TIMES FEW DAYS. WORSE TODAY. TODAY, AMS ALSO. FEVER REPOETED. COUGHING AND CONGESTED. Chief Complaint:: sob x 2-3 days - Reviewed Nurses Notes Reviewed: Yes - Source History Provided: Patient, Family Member - Mode of Arrival Mode of Arrival: Ambulatory - Timing Onset of Chief Complaint: 06/09/17 - Duration Duration: Days - Context Onset:: At Rest, With Light Exertion PE Risk Factors:: None History of:: COPD Currently on:: Inhaled Bronchodilators Prehospital Care:: None - Modifying Factors Worsens:: Nothing Improves:: Nothing - Associated Signs and Symptoms Associated Signs and Symptoms: Fever, Wheeze, Cough, Nasal Congestion, Chest Pain, Leg Swelling. denies: Calf Pain - If Chest Pain Quality: Sharp Location: Right Lower Chest - If Cough Cough: Nonproductive PMH - PMH Past Medical History: Yes Past Medical History: Anxiety, Hypertension Past Surgical History: Yes Surgical History: Hysterectomy - Family History History of Family Medical Conditions: No - Social History Does patient currently use any type of tobacco product: Yes Have you used tobacco products in the last 12 months: Yes Type of Tobacco Use: Cigarettes Do you use any recreational Drugs:: No - infectious screening In the last 2 months have you had wt loss of >10#?: NO Have you had fever, night sweats or hemotysis?: No Have you traveled outside the country in the last 6 months?: No Isolation: Standard ROS - Review of Systems Constitutional: Weakness, Fatigue Eyes: negative: Eye Pain, Discharge ENTM: Nose Congestion. negative: Ear Pain, Nose Discharge, Throat Pain Respiratoy: Non-Productive Cough Gastrointestinal/Abdominal: negative: Abdominal Pain, Diarrhea, Nausea, Vomiting Genitourinary: negative: Dysuria, Hematuria Musculoskeletal: Back Pain Integumentary: Change in Color Hematologic/Lymphatic: Easy Bleeding, Easy Bruising All Other Systems: Reviewed and Negative PE - Vital Signs Vitals: Temperature 99.5 F Pulse Rate [Apical] 107 Pulse Rate 97 Respiratory Rate 17 Blood Pressure [Right Arm] 112/53 Blood Pressure 111/66 O2 Sat by Pulse Oximetry 92 - General Limitations: Altered Mental Status General Appearance: Alert - Head Head Exam: Normal Inspection - Eyes Eye exam: Normal Appearance - ENT ENT Exam: Normal External Ear Exam - Neck Neck Exam: Trachea Midline - Chest Chest Inspection: Symmetric Chest Wall Rise - Respiratory Respiratory Exam: Normal Lung Sounds Bilat, Accessory Muscle Use, Respiratory Distress Respiratory Exam: Bilateral Wheezing, Bilateral Rhonchi, Upper Wheezing, Upper Rhonchi, Lower Wheezing, Lower Rhonchi - Cardiovascular Cardiovascular Exam: Regular Rate, Normal Rhythm, Normal Heart Sounds - Abdominal Exam Abdominal Exam: Normal Bowel Sounds, Soft. negative: Tenderness - Extremities Extremities Exam: Edema - Back Back Exam: Paraspinal Tenderness - Neurologic Neurological Exam: Alert - Skin Skin Exam: Erythema MDM - Additional Information Obtained Additional Information Obtained From: Family - Differential Diagnosis Differential Diagnosis: Bronchitis, CHF, COPD, Hyponatremia, Mycardial Infarction, Pneumonia, Respiratory Insufficiency, Sinusitis, URI Course - Treatment Treatment: SEE ORDERS. - Consultation Consultation Comments: DISCUSS PATIENT WITH DR. CONWAY. HE WILL ADMIT PATIENT. - Education/Counseling Education/Counseling: Patient, Family, Education Educated On: Treatment, Diagnosis ROR - Labs Reviewed Laboratory Results Reviewed?: Yes Result Diagrams: 06/15/17 03:25 06/15/17 03:25 Laboratory: 06/12/17 11:24 Urine,Clean Catch Urine Culture - Final WBC 4.8 X10^3/uL (3.6-10.0) 06/15/17 03:25 RBC 3.84 X10^6/uL (3.5-5.4) 06/15/17 03:25 Hgb 13.6 g/dL (12.0-16.0) 06/15/17 03:25 Hct 39.7 % (36.0-47.0) 06/15/17 03:25 MCV 103.4 fL (80.0-100.0) H 06/15/17 03:25 MCH 35.4 pg (27.0-34.0) H 06/15/17 03:25 MCHC 34.2 g/dL (33.0-35.0) 06/15/17 03:25 RDW 13.7 % (11.6-16.5) 06/15/17 03:25 Plt Count 68 X10^3/uL (150.0-450.0) L 06/15/17 03:25 MPV 10.4 fL (7.4-11.0) 06/15/17 03:25 Neut % 75.2 % (42.0-75.0) H 06/15/17 03:25 Lymph % 15.8 % (21.0-51.0) L 06/15/17 03:25 [place] % 8.7 % (0.0-13.0) 06/15/17 03:25 Eos % 0.1 % (0.9-2.9) L 06/15/17 03:25 Baso % 0.2 % (0.2-1.0) 06/15/17 03:25 Neut # 3.6 x10^3/uL (2.2-4.8) 06/15/17 03:25 Lymph # 0.8 X10^3/uL (1.3-2.9) L 06/15/17 03:25 [place] # 0.4 x10^3/uL (0.3-0.8) 06/15/17 03:25 Eos # 0.0 x10^3/uL (0.0-0.2) 06/15/17 03:25 Baso # 0.0 X10^3/uL (0.0-0.1) 06/15/17 03:25 Absolute Nucleated RBC 0.1 /100WBC 06/15/17 03:25 Sodium 137 mmol/L (136-145) 06/15/17 03:25 Corrected Sodium 138 mmol/L (136-145) 06/15/17 03:25 Potassium 4.2 mmol/L (3.5-5.1) 06/15/17 03:25 Chloride 104 mmol/L (98-107) 06/15/17 03:25 Carbon Dioxide 21.4 mmol/L (21-32) 06/15/17 03:25 BUN 10 mg/dL (7-18) 06/15/17 03:25 Creatinine 0.55 mg/dL (0.55-1.02) 06/15/17 03:25 Est GFR (MDRD) Af Amer > 60 (>60) 06/15/17 03:25 Est GFR (MDRD) Non-Af > 60 (>60) 06/15/17 03:25 Glucose 161 mg/dL (65-99) H 06/15/17 03:25 Calcium 8.7 mg/dL (8.5-10.1) 06/15/17 03:25 Corrected Calcium 9.3 mg/dL (8.5-10.1) 06/15/17 03:25 Total Bilirubin 0.40 mg/dL (0.2-1.0) 06/15/17 03:25 AST 232 Units/L (15-37) H 06/15/17 03:25 ALT 143 Units/L (12-78) H 06/15/17 03:25 Alkaline Phosphatase 186 Units/L (46-116) H 06/15/17 03:25 Creatine Kinase 74 Units/L (26-192) 06/13/17 00:20 CK-MB (CK-2) < 1.0 ng/mL (0-4.0) 06/13/17 00:20 CK/CKMB % Calc 1.4 % (<4) 06/13/17 00:20 Troponin I < 0.02 ng/mL (0-1.5) 06/13/17 00:20 B-Natriuretic Peptide 101 pg/mL (0-79) H 06/12/17 11:25 Total Protein 7.4 g/dL (6.4-8.2) 06/15/17 03:25 Albumin 3.2 g/dL (3.4-5.0) L 06/15/17 03:25 Globulin 4.2 g/dL (2.5-4.5) 06/15/17 03:25 Albumin/Globulin Ratio 0.8 Ratio (1.1-2.1) L 06/15/17 03:25 Specimen Type Clean catch urine 06/12/17 11:24 Urine Color Yellow (YELLOW) 06/12/17 11:24 Urine Appearance Slightly hazy (CLEAR) 06/12/17 11:24 Urine pH 8.0 (5.0 - 8.0) 06/12/17 11:24 Ur Specific [place] 1.020 (1.000-1.030) 06/12/17 11:24 Urine Protein Negative (NEGATIVE) 06/12/17 11:24 Urine Glucose (UA) Negative (NEGATIVE) 06/12/17 11:24 Urine Ketones 2+ (NEGATIVE) 06/12/17 11:24 Urine Occult Blood 1+ (NEGATIVE) 06/12/17 11:24 Urine Nitrite Negative (NEGATIVE) 06/12/17 11:24 Urine Bilirubin Negative (NEGATIVE) 06/12/17 11:24 Urine Urobilinogen 2+ (NORMAL) 06/12/17 11:24 Ur Leukocyte Esterase 1+ (NEGATIVE) 06/12/17 11:24 Urine RBC 2-4 /HPF (NEGATIVE) 06/12/17 11:24 Urine WBC 2-4 /HPF (NEGATIVE) 06/12/17 11:24 Ur Squamous Epith Cells Rare /HPF (NEGATIVE) 06/12/17 11:24 Amorphous Sediment 3+ /HPF (NEGATIVE) 06/12/17 11:24 Urine Bacteria 1+ /HPF (NEGATIVE) 06/12/17 11:24 Ur Culture Indicated? Yes/culture set up 06/12/17 11:24 - XRAY XRAY Interpreted by: Radiologist XRAY Findings: REPORT DISCUSS WITH FAMILY. - EKG Rhythm: ST (EKG NOTED) - Diagnosis Discharge Problem: COPD with acute bronchitis Dyspnea Qualifiers: Dyspnea type: shortness of breath Qualified Code(s): R06.02 - Shortness of breath Chest pain Qualifiers: Chest pain type: precordial pain Qualified Code(s): R07.2 - Precordial pain - Discharge Plan Disposition: ADMITTED INPATIENT Condition: Stable - Follow ups/Referrals - Instructions
[2017-06-12 11:49] LABS: BASOPHILS % (AUTO) 1.1 % (0.2-1.0); EOSINOPHILS % (AUTO) 0.7 % (0.9-2.9); HEMATOCRIT 41.6 % (36.0-47.0); HEMOGLOBIN 14.5 g/dL (12.0-16.0); LYMPHOCYTES # (AUTO) 0.8 X10^3/uL (1.3-2.9); LYMPHOCYTES % (AUTO) 19.1 % (21.0-51.0); MEAN CORPUSCULAR HEMOGLOBIN 35.6 pg (27.0-34.0); MEAN CORPUSCULAR HGB CONC 34.9 g/dL (33.0-35.0); MEAN CORPUSCULAR VOLUME 102.1 fL (80.0-100.0); MONOCYTES # (AUTO) 0.5 x10^3/uL (0.3-0.8); MONOCYTES % (AUTO) 11.8 % (0.0-13.0); NEUTROPHILS # (AUTO) 2.9 x10^3/uL (2.2-4.8); NEUTROPHILS % (AUTO) 67.3 % (42.0-75.0); PLATELET COUNT 60 X10^3/uL (150.0-450.0); RED BLOOD COUNT 4.08 X10^6/uL (3.5-5.4); RED CELL DISTRIBUTION WIDTH 13.6 % (11.6-16.5); WHITE BLOOD COUNT 4.3 X10^3/uL (3.6-10.0)
[2017-06-12 12:01] LABS: BILIRUBIN,URINE NEGATIVE (NEGATIVE); BLOOD/HEMOGLOBIN,URINE 1+ (NEGATIVE); GLUCOSE, URINE NEGATIVE (NEGATIVE); KETONES,URINE 2+ (NEGATIVE); LEUKOCYTE ESTERASE ,URINE 1+ (NEGATIVE); NITRITES,URINE NEGATIVE (NEGATIVE); PROTEIN,URINE NEGATIVE (NEGATIVE); UROBILINOGEN,URINE 2+ (NORMAL)
[2017-06-12 12:09] LABS: APPEARANCE,URINE SLIGHTLY HAZY (CLEAR); BACTERIA,URINE 1+ /HPF (NEGATIVE); COLOR,URINE YELLOW (YELLOW); SQUAMOUS EPITHELIAL CELL,UR RARE /HPF (NEGATIVE)
[2017-06-12 12:10] LABS: AMORPHOUS SEDIMENT,UR 3+ /HPF (NEGATIVE)
[2017-06-12 12:20] LABS: ALANINE AMINOTRANSFERASE 86 Units/L (12-78); ALBUMIN 3.5 g/dL (3.4-5.0); ALKALINE PHOSPHATASE 199 Units/L (46-116); ASPARTATE AMINO TRANSFERASE 230 Units/L (15-37); BLOOD UREA NITROGEN 8 mg/dL (7-18); CALCIUM 9.1 mg/dL (8.5-10.1); CARBON DIOXIDE 24.7 mmol/L (21-32); CHLORIDE 100 mmol/L (98-107); CKMB % 0.9 % (<4); COR NA(FOR HYPERGLY) 134 mmol/L (136-145); CREATINE KINASE 109 Units/L (26-192); CREATINE KINASE MB < 1.0 ng/mL (0-4.0); CREATININE 0.52 mg/dL (0.55-1.02); SODIUM 134 mmol/L (136-145); TOTAL PROTEIN 7.9 g/dL (6.4-8.2); TROPONIN I < 0.02 ng/mL (0-1.5); eGFR BLACK RACES > 60 (>60); eGFR NON BLACK RACES > 60 (>60)
[2017-06-12] MEDS ORDERED: TORADOL 30 MG VIAL IVP ONE (13:52)
[2017-06-12] MEDS ORDERED: TORADOL 30 MG VIAL ONE (14:00)
--- NOTE | 2017-06-12 14:01 | RAD ---
Examination: Portable AP chest History: Chest pain SOB Comparison reference: 12/27/2016 Findings: Continued normal heart size with no evidence for acute pulmonary, pleural or hilar abnormal ity. There is no evidence for pneumonia, pneumothorax or pulmonary edema. Impression: No acute abnormality demonstrated. Reported By:
[2017-06-12] MEDS ORDERED: ROCEPHIN VIAL 1 GM 1 GM in NS 50 ML IV + SPIKE MINIBAG* 50 ML IV ONE (15:24)
[2017-06-12] MEDS ORDERED: ROCEPHIN 1 GM IV PREMIX 1 GM/50 ML IV.SOLN. IV ONE (15:38)
[2017-06-12] MEDS: NS 1000 ML 1,000 ML IV SCH (15:43)
[2017-06-12] MEDS: DUONEB 0.5 MG/3 MG NEB SCH ×2 (17:00→21:24)
[2017-06-12 19:05] LABS: CKMB % 1.2 % (<4); CREATINE KINASE 86 Units/L (26-192); CREATINE KINASE MB < 1.0 ng/mL (0-4.0); TROPONIN I < 0.02 ng/mL (0-1.5)
[2017-06-12] MEDS: RESTORIL CAP 15 MG PO PRN (23:21)
[2017-06-13] MEDS: DUONEB 0.5 MG/3 MG NEB SCH ×6 (01:16→21:43)
[2017-06-13 01:40] LABS: CKMB % 1.4 % (<4); CREATINE KINASE 74 Units/L (26-192); CREATINE KINASE MB < 1.0 ng/mL (0-4.0); TROPONIN I < 0.02 ng/mL (0-1.5)
[2017-06-13] MEDS: NS 1000 ML 1,000 ML IV SCH ×3 (04:43→15:31)
[2017-06-13 04:53] LABS: BASOPHILS % (AUTO) 0.3 % (0.2-1.0); EOSINOPHILS % (AUTO) 0.1 % (0.9-2.9); HEMATOCRIT 37.7 % (36.0-47.0); HEMOGLOBIN 13.1 g/dL (12.0-16.0); LYMPHOCYTES % (AUTO) 18.4 % (21.0-51.0); MEAN CORPUSCULAR HEMOGLOBIN 35.2 pg (27.0-34.0); MEAN CORPUSCULAR HGB CONC 34.7 g/dL (33.0-35.0); MEAN CORPUSCULAR VOLUME 101.5 fL (80.0-100.0); MEAN PLATELET VOLUME 11.4 fL (7.4-11.0); MONOCYTES # (AUTO) 0.5 x10^3/uL (0.3-0.8); MONOCYTES % (AUTO) 9.7 % (0.0-13.0); NEUTROPHILS # (AUTO) 3.8 x10^3/uL (2.2-4.8); NEUTROPHILS % (AUTO) 71.5 % (42.0-75.0); PLATELET COUNT 60 X10^3/uL (150.0-450.0); RED BLOOD COUNT 3.72 X10^6/uL (3.5-5.4); RED CELL DISTRIBUTION WIDTH 13.5 % (11.6-16.5); WHITE BLOOD COUNT 5.3 X10^3/uL (3.6-10.0)
[2017-06-13 04:56] LABS: ALANINE AMINOTRANSFERASE 73 Units/L (12-78); ALBUMIN 2.9 g/dL (3.4-5.0); ALKALINE PHOSPHATASE 185 Units/L (46-116); ASPARTATE AMINO TRANSFERASE 182 Units/L (15-37); BLOOD UREA NITROGEN 13 mg/dL (7-18); CALCIUM 8.7 mg/dL (8.5-10.1); CHLORIDE 103 mmol/L (98-107); COR CA(FOR HYPOALB) 9.6 mg/dL (8.5-10.1); COR NA(FOR HYPERGLY) 139 mmol/L (136-145); CREATININE 0.55 mg/dL (0.55-1.02); SODIUM 138 mmol/L (136-145); TOTAL PROTEIN 6.9 g/dL (6.4-8.2); eGFR BLACK RACES > 60 (>60); eGFR NON BLACK RACES > 60 (>60)
[2017-06-13] MEDS ORDERED: ROBITUSSIN DM PO PRN (07:20)
[2017-06-13] MEDS ORDERED: ROCEPHIN VIAL 1 GM 1 GM in NS 50 ML IV + SPIKE MINIBAG* 50 ML IV SCH (09:00)
[2017-06-13] MEDS: SOLU-Medrol 40 MG VIAL IVP SCH ×2 (09:11→16:00)
[2017-06-13] MEDS ORDERED: MORPHINE SULFATE INJ 2 MG INJ IVP PRN (09:11)
[2017-06-13] MEDS ORDERED: TYLENOL 325 MG TAB PO PRN (09:11)
[2017-06-13] MEDS: NORCO 5/325 MG TAB PO PRN ×2 (09:27→21:56)
[2017-06-13] MEDS: RESTORIL CAP 15 MG PO PRN (21:57)
[2017-06-13] MEDS: ULTRAM PO PRN (21:57)
[2017-06-13] MEDS: TUSSIONEX PENNKINETIC SUSP PO PRN (21:57)
[2017-06-14] MEDS: DUONEB 0.5 MG/3 MG NEB SCH ×6 (00:50→21:52)
[2017-06-14] MEDS: SOLU-Medrol 40 MG VIAL IVP SCH ×3 (04:30→21:30)
[2017-06-14 05:28] LABS: ALANINE AMINOTRANSFERASE 93 Units/L (12-78); ALBUMIN 2.9 g/dL (3.4-5.0); ALKALINE PHOSPHATASE 148 Units/L (46-116); ASPARTATE AMINO TRANSFERASE 213 Units/L (15-37); BLOOD UREA NITROGEN 12 mg/dL (7-18); CALCIUM 8.1 mg/dL (8.5-10.1); CARBON DIOXIDE 23.2 mmol/L (21-32); CHLORIDE 105 mmol/L (98-107); COR NA(FOR HYPERGLY) 140 mmol/L (136-145); SODIUM 139 mmol/L (136-145); TOTAL PROTEIN 6.8 g/dL (6.4-8.2); eGFR BLACK RACES > 60 (>60); eGFR NON BLACK RACES > 60 (>60)
[2017-06-14 06:08] LABS: BASOPHILS % (AUTO) 0.1 % (0.2-1.0); HEMATOCRIT 37.2 % (36.0-47.0); HEMOGLOBIN 12.8 g/dL (12.0-16.0); LYMPHOCYTES # (AUTO) 0.9 X10^3/uL (1.3-2.9); LYMPHOCYTES % (AUTO) 15.8 % (21.0-51.0); MEAN CORPUSCULAR HEMOGLOBIN 35.6 pg (27.0-34.0); MEAN CORPUSCULAR HGB CONC 34.4 g/dL (33.0-35.0); MEAN CORPUSCULAR VOLUME 103.6 fL (80.0-100.0); MEAN PLATELET VOLUME 11.1 fL (7.4-11.0); MONOCYTES # (AUTO) 0.5 x10^3/uL (0.3-0.8); NEUTROPHILS # (AUTO) 4.1 x10^3/uL (2.2-4.8); NEUTROPHILS % (AUTO) 74.1 % (42.0-75.0); PLATELET COUNT 64 X10^3/uL (150.0-450.0); RED BLOOD COUNT 3.59 X10^6/uL (3.5-5.4); RED CELL DISTRIBUTION WIDTH 13.9 % (11.6-16.5); WHITE BLOOD COUNT 5.5 X10^3/uL (3.6-10.0)
--- NOTE | 2017-06-14 06:42 | RAD ---
HISTORY: Cough and shortness of breath Study: Portable AP chest Comparison: June 12 Findings: The trachea is midline. The cardiac silhouette is unremarkable. The lungs are clear without focal i nfiltrate or effusion. The bony thorax is unremarkable. IMPRESSION: 1. No acute cardiopulmonary disease. Reported By:
[2017-06-14] MEDS: ROCEPHIN VIAL 1 GM 1 GM in D5W 50 ML IV 50 ML IV SCH (09:00)
[2017-06-14] MEDS: NS 1000 ML 1,000 ML IV SCH (10:50)
[2017-06-14] MEDS: NORCO 5/325 MG TAB PO PRN (21:30)
[2017-06-14] MEDS: TUSSIONEX PENNKINETIC SUSP PO PRN (21:30)
[2017-06-14] MEDS: RESTORIL CAP 15 MG PO PRN (21:30)
[2017-06-14] MEDS: ULTRAM PO PRN (21:30)
[2017-06-15] MEDS: DUONEB 0.5 MG/3 MG NEB SCH ×4 (01:08→12:30)
[2017-06-15] MEDS: NS 1000 ML 1,000 ML IV SCH (01:45)
[2017-06-15] MEDS: SOLU-Medrol 40 MG VIAL IVP SCH ×2 (05:09→14:05)
[2017-06-15 06:19] LABS: HEMOGLOBIN 13.6 g/dL (12.0-16.0); MONOCYTES # (AUTO) 0.4 x10^3/uL (0.3-0.8)
[2017-06-15 06:22] LABS: BASOPHILS % (AUTO) 0.2 % (0.2-1.0); EOSINOPHILS % (AUTO) 0.1 % (0.9-2.9); HEMATOCRIT 39.7 % (36.0-47.0); LYMPHOCYTES # (AUTO) 0.8 X10^3/uL (1.3-2.9); LYMPHOCYTES % (AUTO) 15.8 % (21.0-51.0); MEAN CORPUSCULAR HEMOGLOBIN 35.4 pg (27.0-34.0); MEAN CORPUSCULAR HGB CONC 34.2 g/dL (33.0-35.0); MEAN CORPUSCULAR VOLUME 103.4 fL (80.0-100.0); MEAN PLATELET VOLUME 10.4 fL (7.4-11.0); MONOCYTES % (AUTO) 8.7 % (0.0-13.0); NEUTROPHILS # (AUTO) 3.6 x10^3/uL (2.2-4.8); NEUTROPHILS % (AUTO) 75.2 % (42.0-75.0); PLATELET COUNT 68 X10^3/uL (150.0-450.0); RED BLOOD COUNT 3.84 X10^6/uL (3.5-5.4); RED CELL DISTRIBUTION WIDTH 13.7 % (11.6-16.5); WHITE BLOOD COUNT 4.8 X10^3/uL (3.6-10.0)
[2017-06-15 07:08] LABS: ALANINE AMINOTRANSFERASE 143 Units/L (12-78); ALBUMIN 3.2 g/dL (3.4-5.0); ALKALINE PHOSPHATASE 186 Units/L (46-116); ASPARTATE AMINO TRANSFERASE 232 Units/L (15-37); BLOOD UREA NITROGEN 10 mg/dL (7-18); CALCIUM 8.7 mg/dL (8.5-10.1); CARBON DIOXIDE 21.4 mmol/L (21-32); CHLORIDE 104 mmol/L (98-107); COR CA(FOR HYPOALB) 9.3 mg/dL (8.5-10.1); COR NA(FOR HYPERGLY) 138 mmol/L (136-145); CREATININE 0.55 mg/dL (0.55-1.02); SODIUM 137 mmol/L (136-145); TOTAL PROTEIN 7.4 g/dL (6.4-8.2); eGFR BLACK RACES > 60 (>60); eGFR NON BLACK RACES > 60 (>60)
--- NOTE | 2017-06-15 07:22 | RAD ---
Examination: Chest, PA and lateral views History: COPD Comparison reference 06/14/2017 Findings: Continued normal heart size. The pulmonary vessels are congested. There is a patchy area of airspace density in the right lower lobe. No pleural fluid or pneumothorax is seen. Impression: Increasing pulmonary vascular congestion with development of right lower lung infiltrate. Follow-up suggested. Reported By:
[2017-06-15] MEDS: ROCEPHIN VIAL 1 GM 1 GM in D5W 50 ML IV 50 ML IV SCH (08:24)
[2017-06-15 14:49] VITALS: BP 157/71
--- NOTE | 2017-06-24 00:15 | DR.H&P ---
H&P - History & Physical for Day of: H&P Date: 06/12/17 - Chief Complaint Chief Complaint: SOB - Allergies Allergies/Adverse Reactions: Allergies Allergy/AdvReac Type Severity Reaction Status Date / Time No Known Drug Allergies Allergy Verified 06/13/17 09:08 - History of Present Illness History of Present Illness: INCREASING SOB TIMES FOR 2-3 DAYS. WORSE TODAY. HAVING AMS ALSO. FEVER REPOETED. COUGHING AND CONGESTED. - Past Medical History Past Medical History: Anxiety, Hypertension - Past Surgical History Surgical History: Hysterectomy - Social History Does patient currently use any type of tobacco product: Yes Have you used tobacco products in the last 12 months: Yes Type of Tobacco Use: Cigarettes Does any household member use tobacco: No Alcohol Use: None Drug Use: None - Medications Home Medications: Budesonide-Formoterol [SYMBICORT INH 160-4.5 mcg (10.2 g) *] 1 puff INH BID [History Confirmed 06/12/17] - Review of Systems Constitutional: Weakness, Malaise Eyes: No Symptoms Reported ENT: No Symptoms Reported Respiratory: Cough, Shortness of Breath, SOB with Excertion, Pleuritic Pain Cardiovascular: No Symptoms Reported Gastrointestinal: No Symptoms Reported Genitourinary: No Symptoms Reported Musculoskeletal: No Symptoms Reported Skin: No Symptoms Reported Neurological: No Symptoms Reported - Physical Exam Vital Signs: Temperature 97.6 F Pulse Rate [Right Brachial] 82 Pulse Rate [Apical] 101 Pulse Rate 80 Respiratory Rate 20 Blood Pressure [Right Arm] 157/71 Blood Pressure 111/66 O2 Sat by Pulse Oximetry 93 Oriented: Normal Eyes: Normal Ear: Normal Nose: Normal Throat: Normal Respiratory: Diminished Throughout, Wheezes Throughout Cardiovascular: Normal : Normal Auscultation: Bowel Sounds: Normal Palpation: Normal Tenderness: Normal Skin: Normal Musculoskeletal: Normal Psychiatric: Normal Mood Description: Calm Affect: Normal Speech Pattern: Clear - Assessment/Plan (1) COPD with acute bronchitis Status: Acute Plan: IV ANTIBX, NEBS, CXR, LABS (2) Chest pain Qualifiers: Chest pain type: chest pain on breathing Qualified Code(s): R07.1 - Chest pain on breathing; R07.81 - Pleurodynia Status: Acute Plan: RESPIRATORY CARE
--- NOTE | 2017-06-24 00:17 | PCM.PROG ---
Progress Note - Progress Note for Day of Date: 06/13/17 - Subjective Subjective: SOB, CONGESTION IMPROVING. - Past Medical Family Social History Past Med/Fam/Surg Hx: No changes since H&P Allergies: Allergies No Known Drug Allergies Allergy (Verified 06/13/17 09:08) - Review of Systems ROS: No change since H&P - Vital Signs and I&O's Vital Signs: Temperature 97.6 F Pulse Rate [Right Brachial] 82 Pulse Rate [Apical] 101 Pulse Rate 80 Respiratory Rate 20 Blood Pressure [Right Arm] 157/71 Blood Pressure 111/66 O2 Sat by Pulse Oximetry 93 - Physical Exam Oriented: Normal Eyes: Normal Ear: Normal Nose: Normal Throat: Normal Respiratory: Diminished, Wheezes Cardiovascular: Normal : Normal Auscultation: Bowel Sounds: Normal Palpation: Normal Tenderness: Normal Skin: Normal Musculoskeletal: Normal Psychiatric: Normal Mood Description: Calm Affect: Normal Speech Pattern: Clear - Laboratory and Diagnostics Result Diagrams: 06/15/17 03:25 06/15/17 03:25 Labs: 06/12/17 11:24 Urine,Clean Catch Urine Culture - Final Laboratory WBC 4.8 X10^3/uL (3.6-10.0) 06/15/17 03:25 RBC 3.84 X10^6/uL (3.5-5.4) 06/15/17 03:25 Hgb 13.6 g/dL (12.0-16.0) 06/15/17 03:25 Hct 39.7 % (36.0-47.0) 06/15/17 03:25 MCV 103.4 fL (80.0-100.0) H 06/15/17 03:25 MCH 35.4 pg (27.0-34.0) H 06/15/17 03:25 MCHC 34.2 g/dL (33.0-35.0) 06/15/17 03:25 RDW 13.7 % (11.6-16.5) 06/15/17 03:25 Plt Count 68 X10^3/uL (150.0-450.0) L 06/15/17 03:25 MPV 10.4 fL (7.4-11.0) 06/15/17 03:25 Neut % 75.2 % (42.0-75.0) H 06/15/17 03:25 Lymph % 15.8 % (21.0-51.0) L 06/15/17 03:25 [place] % 8.7 % (0.0-13.0) 06/15/17 03:25 Eos % 0.1 % (0.9-2.9) L 06/15/17 03:25 Baso % 0.2 % (0.2-1.0) 06/15/17 03:25 Neut # 3.6 x10^3/uL (2.2-4.8) 06/15/17 03:25 Lymph # 0.8 X10^3/uL (1.3-2.9) L 06/15/17 03:25 [place] # 0.4 x10^3/uL (0.3-0.8) 06/15/17 03:25 Eos # 0.0 x10^3/uL (0.0-0.2) 06/15/17 03:25 Baso # 0.0 X10^3/uL (0.0-0.1) 06/15/17 03:25 Absolute Nucleated RBC 0.1 /100WBC 06/15/17 03:25 Sodium 137 mmol/L (136-145) 06/15/17 03:25 Corrected Sodium 138 mmol/L (136-145) 06/15/17 03:25 Potassium 4.2 mmol/L (3.5-5.1) 06/15/17 03:25 Chloride 104 mmol/L (98-107) 06/15/17 03:25 Carbon Dioxide 21.4 mmol/L (21-32) 06/15/17 03:25 BUN 10 mg/dL (7-18) 06/15/17 03:25 Creatinine 0.55 mg/dL (0.55-1.02) 06/15/17 03:25 Est GFR (MDRD) Af Amer > 60 (>60) 06/15/17 03:25 Est GFR (MDRD) Non-Af > 60 (>60) 06/15/17 03:25 Glucose 161 mg/dL (65-99) H 06/15/17 03:25 Calcium 8.7 mg/dL (8.5-10.1) 06/15/17 03:25 Corrected Calcium 9.3 mg/dL (8.5-10.1) 06/15/17 03:25 Total Bilirubin 0.40 mg/dL (0.2-1.0) 06/15/17 03:25 AST 232 Units/L (15-37) H 06/15/17 03:25 ALT 143 Units/L (12-78) H 06/15/17 03:25 Alkaline Phosphatase 186 Units/L (46-116) H 06/15/17 03:25 Creatine Kinase 74 Units/L (26-192) 06/13/17 00:20 CK-MB (CK-2) < 1.0 ng/mL (0-4.0) 06/13/17 00:20 CK/CKMB % Calc 1.4 % (<4) 06/13/17 00:20 Troponin I < 0.02 ng/mL (0-1.5) 06/13/17 00:20 B-Natriuretic Peptide 101 pg/mL (0-79) H 06/12/17 11:25 Total Protein 7.4 g/dL (6.4-8.2) 06/15/17 03:25 Albumin 3.2 g/dL (3.4-5.0) L 06/15/17 03:25 Globulin 4.2 g/dL (2.5-4.5) 06/15/17 03:25 Albumin/Globulin Ratio 0.8 Ratio (1.1-2.1) L 06/15/17 03:25 Specimen Type Clean catch urine 06/12/17 11:24 Urine Color Yellow (YELLOW) 06/12/17 11:24 Urine Appearance Slightly hazy (CLEAR) 06/12/17 11:24 Urine pH 8.0 (5.0 - 8.0) 06/12/17 11:24 Ur Specific [place] 1.020 (1.000-1.030) 06/12/17 11:24 Urine Protein Negative (NEGATIVE) 06/12/17 11:24 Urine Glucose (UA) Negative (NEGATIVE) 06/12/17 11:24 Urine Ketones 2+ (NEGATIVE) 06/12/17 11:24 Urine Occult Blood 1+ (NEGATIVE) 06/12/17 11:24 Urine Nitrite Negative (NEGATIVE) 06/12/17 11:24 Urine Bilirubin Negative (NEGATIVE) 06/12/17 11:24 Urine Urobilinogen 2+ (NORMAL) 06/12/17 11:24 Ur Leukocyte Esterase 1+ (NEGATIVE) 06/12/17 11:24 Urine RBC 2-4 /HPF (NEGATIVE) 06/12/17 11:24 Urine WBC 2-4 /HPF (NEGATIVE) 06/12/17 11:24 Ur Squamous Epith Cells Rare /HPF (NEGATIVE) 06/12/17 11:24 Amorphous Sediment 3+ /HPF (NEGATIVE) 06/12/17 11:24 Urine Bacteria 1+ /HPF (NEGATIVE) 06/12/17 11:24 Ur Culture Indicated? Yes/culture set up 06/12/17 11:24 - Plan (1) COPD with acute bronchitis Status: Acute Plan: IV ANTIBX, NEBS, CXR, LABS (2) Chest pain Status: Acute Qualifiers: Chest pain type: chest pain on breathing Qualified Code(s): R07.1 - Chest pain on breathing; R07.81 - Pleurodynia Plan: RESPIRATORY CARE
== END 2017-06-15 14:30 | disposition home or self-care (01) ==
LOC: ER 10:51 → OBS 16:49
PROVIDERS: ADMIT Internal Medicine; ATTEND Internal Medicine
DX: J44.1 Chronic obstructive pulmonary disease with (acute) exacerbation (principal); R07.1 Chest pain on breathing; J20.8 Acute bronchitis due to other specified organisms; R06.02 Shortness of breath; R41.82 Altered mental status, unspecified; R94.30 Abnormal result of cardiovascular function study, unspecified
CPT/HCPCS: 36415; 71010; 71020; 80053; 81001; 82550; 82553; 83880; 84484; 85025; 87086; 93005; 93010; 94640; 94760; 96365; 96367; 96374; 96375; 99284; A4222; G0378; J0696; J1885; J2920; J2930; J7620

== ENCOUNTER 2020-09-21 14:02 | Observation (INO) ==
[2020-09-21] MEDS ORDERED: ROCEPHIN VIAL 1 GRAM 1 G in NS 100 ML IV + SPIKE MINIBAG* 100 ML IV SCH (17:45)
--- NOTE | 2020-09-21 17:53 | DR.H&P ---
H&P - History & Physical for Day of: H&P Date: 09/21/20 - Chief Complaint Chief Complaint: SOB, SWELLING UNDER RIGHT ARM, WEAKNESS - History of Present Illness History of Present Illness: PT IS 55 WF DIRECT ADMIT WITH CO SOB AND WEAKNESS. PT STATES SHE HAD NEW SWOLLEN GLAND, MASS UNDER HER RIGHT AXILLARY. PT HAD HX OF COPD AND NEWLY TOLD SHE HAD POSSIBLE LUNG MASS. PT HAD NOT HAD BIOPSY OF MASS, WAS TREATED FOR PNEUMONIA AT [facility] IN [place]. PT WAS STARTED ON ANOTHER ROUND OF ANTIBIOTICS, LEVAQUIN 2 DAYS PRIOR TO ADMISSION WITH CONTINUED SOB, CCC. PT DENIES ANY FEVER OR KNOWN COVID EXPOSURE. PT ADMITTED FOR TREATMENT OF ACUTE ILLNESS. - Past Medical History Past Medical History: Arthritis, Asthma, COPD - Past Surgical History Surgical History: Hysterectomy - Family History Family Medical History: Cancer - Social History Have you used tobacco products in the last 12 months: Yes Type of Tobacco Use: Cigarettes Does any household member use tobacco: No Alcohol Use: Other (PREVIOUS ETOH DRINKER) Drug Use: None Risks, benefits, and alternatives of opioids discussed: No Prescription drug monitoring program results: PDMP reviewed and no concerns identified - Medications Home Medications: No Known Drug Allergies Allergy (Verified 06/13/17 09:08) - Review of Systems Constitutional: Weakness, Malaise Eyes: No Symptoms Reported ENT: No Symptoms Reported Respiratory: Shortness of Breath, SOB with Excertion, Pleuritic Pain, Sputum, Wheezing Cardiovascular: Chest Pain, Light Headedness Gastrointestinal: Nausea Genitourinary: No Symptoms Reported Musculoskeletal: Shoulder Pain, Arm Pain Skin: No Symptoms Reported Neurological: Weakness - Physical Exam Vital Signs: Blood Pressure [Right Arm] 189/74 Blood Pressure 189/74 Oriented: Normal Eyes: Normal Ear: Normal Nose: Normal Throat: Normal Respiratory: Rhonchi Throughout, RML Diminished, RLL Diminished, LLL Diminished Cardiovascular: Normal. negative: Edema : Normal Auscultation: Bowel Sounds: Normal Palpation: Normal Tenderness: Normal Skin: Decreased [place] Musculoskeletal: Right, Swelling (RIGHT AXILLARY MASS), Tender Psychiatric: Anxiety Affect: Anxious Speech Pattern: Clear, Appropriate - Assessment/Plan (1) Respiratory distress Status: Acute Plan: ADMIT, COVID SWAB ON ADMISSION. CXR, IV ATBX, SOLU MEDROL. RESP THERAPY, ROOM AIR ABG, ADMISSION LABS. BLOOD AND SPUTUM CULTURE. DUO NEBS, VERIFY HOME MEDICATION, CT CHEST/ABD PELVIS RO METASTATIC LESIONS, OBTAIN CARDIAC TEST RESULTS FROM [facility] (2) Lung mass Status: Acute (3) Right axillary swelling Status: Acute (4) COPD with acute bronchitis Status: Acute (5) GERD (gastroesophageal reflux disease) Status: Acute - Allergies Allergies/Adverse Reactions: Allergies Allergy/AdvReac Type Severity Reaction Status Date / Time No Known Drug Allergies Allergy Verified 06/13/17 09:08
[2020-09-21 19:18] LABS: BASOPHILS # (AUTO) 0.1 X10^3/uL (0.0-0.1); BASOPHILS % (AUTO) 0.9 % (0.2-1.0); EOSINOPHILS # (AUTO) 0.4 x10^3/uL (0.0-0.2); EOSINOPHILS % (AUTO) 6.8 % (0.9-2.9); HEMATOCRIT 43.2 % (36.0-47.0); HEMOGLOBIN 14.6 g/dL (12.0-16.0); LYMPHOCYTES # (AUTO) 2.8 X10^3/uL (1.3-2.9); LYMPHOCYTES % (AUTO) 49.8 % (21.0-51.0); MEAN CORPUSCULAR HEMOGLOBIN 32.4 pg (27.0-34.0); MEAN CORPUSCULAR HGB CONC 33.9 g/dL (33.0-35.0); MEAN CORPUSCULAR VOLUME 95.7 fL (80.0-100.0); MEAN PLATELET VOLUME 8.9 fL (7.4-11.0); MONOCYTES # (AUTO) 0.6 x10^3/uL (0.3-0.8); MONOCYTES % (AUTO) 10.8 % (0.0-13.0); NEUTROPHILS # (AUTO) 1.8 x10^3/uL (2.2-4.8); NEUTROPHILS % (AUTO) 31.7 % (42.0-75.0); PLATELET COUNT 72 X10^3/uL (150.0-450.0); RED BLOOD COUNT 4.51 X10^6/uL (3.5-5.4); RED CELL DISTRIBUTION WIDTH 15.9 % (11.6-16.5); WHITE BLOOD COUNT 5.7 X10^3/uL (3.6-10.0)
[2020-09-21 19:40] LABS: ALANINE AMINOTRANSFERASE 40 Units/L (12-78); ALKALINE PHOSPHATASE 231 Units/L (46-116); ASPARTATE AMINO TRANSFERASE 70 Units/L (15-37); BLOOD UREA NITROGEN 17 mg/dL (7-18); CALCIUM 8.9 mg/dL (8.5-10.1); CARBON DIOXIDE 25.2 mmol/L (21-32); CHLORIDE 106 mmol/L (98-107); COR CA(FOR HYPOALB) 9.7 mg/dL (8.5-10.1); CREATININE 0.73 mg/dL (0.55-1.02); SODIUM 138 mmol/L (136-145); TOTAL PROTEIN 7.3 g/dL (6.4-8.2); eGFR NON BLACK RACES > 60 (>60)
[2020-09-21] MEDS: NS 1000 ML 1,000 ML IV SCH (21:20)
[2020-09-21] MEDS: SOLU-Medrol 40 MG VIAL IVP SCH ×2 (21:20→22:57)
[2020-09-21 21:21] LABS: ABG BASE EXCESS -0.1 mmol/L (-2.0-2.0); ABG HCO3 23.9 mmol/L (22-26)
[2020-09-21 21:22] LABS: ABG ALLEN TEST POS
[2020-09-21] MEDS ORDERED: SALINE 3% 15 ML NEB TX ONE (22:01)
[2020-09-21] MEDS: VISTARIL PO PRN (22:57)
[2020-09-21 23:57] VITALS: BMI 23.6
[2020-09-22] MEDS: SOLU-Medrol 40 MG VIAL IVP SCH (05:12)
[2020-09-22 05:20] LABS: BASOPHILS % (AUTO) 0.8 % (0.2-1.0); EOSINOPHILS % (AUTO) 0.2 % (0.9-2.9); HEMATOCRIT 40.5 % (36.0-47.0); HEMOGLOBIN 13.4 g/dL (12.0-16.0); LYMPHOCYTES % (AUTO) 41.3 % (21.0-51.0); MEAN CORPUSCULAR HEMOGLOBIN 31.5 pg (27.0-34.0); MEAN CORPUSCULAR VOLUME 95.4 fL (80.0-100.0); MEAN PLATELET VOLUME 9.6 fL (7.4-11.0); MONOCYTES # (AUTO) 0.1 x10^3/uL (0.3-0.8); MONOCYTES % (AUTO) 2.5 % (0.0-13.0); NEUTROPHILS # (AUTO) 1.4 x10^3/uL (2.2-4.8); NEUTROPHILS % (AUTO) 55.2 % (42.0-75.0); PLATELET COUNT 62 X10^3/uL (150.0-450.0); RED BLOOD COUNT 4.24 X10^6/uL (3.5-5.4); RED CELL DISTRIBUTION WIDTH 15.6 % (11.6-16.5); WHITE BLOOD COUNT 2.5 X10^3/uL (3.6-10.0)
[2020-09-22 05:32] LABS: ALANINE AMINOTRANSFERASE 36 Units/L (12-78); ALBUMIN 2.6 g/dL (3.4-5.0); ALKALINE PHOSPHATASE 195 Units/L (46-116); ASPARTATE AMINO TRANSFERASE 62 Units/L (15-37); BLOOD UREA NITROGEN 15 mg/dL (7-18); CALCIUM 8.5 mg/dL (8.5-10.1); CARBON DIOXIDE 23.7 mmol/L (21-32); CHLORIDE 108 mmol/L (98-107); COR CA(FOR HYPOALB) 9.6 mg/dL (8.5-10.1); COR NA(FOR HYPERGLY) 140 mmol/L (136-145); CREATININE 0.73 mg/dL (0.55-1.02); SODIUM 139 mmol/L (136-145); TOTAL PROTEIN 6.5 g/dL (6.4-8.2); eGFR NON BLACK RACES > 60 (>60)
--- NOTE | 2020-09-22 06:48 | RAD ---
HISTORYCough, shortness of breathSTUDYChest PA and [id number]/26/2020FINDINGSThe heart is within normal limits in size. The sherman are normal. The lungs are hyperinflated but free of acute infiltrates. No pleural effusions are identified. Bony thorax is unremarkable.IMPRESSIONLungs hyperinflated but free of acute infiltrate, consistent with COPD in the appropriate clinical settingElectronically signed by: JOSE KENYON (Sep 22, 2020 06:45:36)
--- NOTE | 2020-09-22 07:33 | US ---
HISTORYPalpable nodule right axillaSTUDYUltrasound right axillaTechnique: Multiple grayscale sonographic images were obtained.COMPARISONNoneFINDINGSSonographic evaluation was focused 2 palpable abnormalities in the rig ht axilla. There is a 1.6 x 1 x 1.3 cm architecturally normal lymph node present. There is a 2nd 1.5 x 0.9 x 1.3 cm architecturally normal lymph node present.IMPRESSIONProminent but not grossly enlarged architecturally normal right axillary lymph nodes as describedElectronically signed by: JOSE Damon (Sep 22, 2020 07:30:26)
[2020-09-22] MEDS ORDERED: DUONEB 0.5 MG/3 MG (3 mL) NEB SCH (09:00)
[2020-09-22] MEDS ORDERED: PULMICORT NEB TX 0.5 MG NEB SCH (09:00)
[2020-09-22] MEDS: DUONEB 0.5 MG/3 MG (3 mL) NEB SCH ×3 (09:30→18:00)
--- NOTE | 2020-09-22 09:35 | CT ---
HISTORYLung noduleSTUDYCT chest with contrastCOMPARISONCTA chest with contrast August 04, 2020FINDINGSExamination of the mediastinum again demonstrated enlarged retrocaval pretracheal lymphadenopathy, enlarged sub carinal adenopathy and enlarged right hilar adenopathy. Unchanged from the prior examination. There is some central lucency within the enlarged lymph nodes suggesting possible necrosis. No left hilar adenopathy is identified. No pleural effusions are identified. No chest wall or axillary abnormality is identified. Those portions of the upper abdominal organs visualized were within normal limits. Examination of the lung rome again demonstrates some mild atelectatic change in the right middle lobe slightly less prominent than on the prior examination. The 4 mm right lower lobe pulmonary nodule described on the prior examination is best visualized on CT series 5, image 59 and is unchanged. There is a 5.7 mm more anterior right lower lobe pulmonary nodule best visualized on the same image. Retrospectively was present prior examination and is unchanged. Continued follow-up of these nodules with chest CT in 6 more months is recommended. Nonspecific tree-in-bud inflammatory changes are present in the left lower lobe.IMPRESSIONPersistent enlarged mediastinal and right hilar lymphadenopathy. PET-CT is recommended for further evaluation in order to exclude malignancy.No change right lower lobe pulmonary nodules as described above requiring continued CT follow-up in 6 more months.Electronically signed by: JOSE KENYON (Sep 22, 2020 09:33:25)
--- NOTE | 2020-09-22 09:42 | CT ---
HISTORYLUNG MASSSTUDYABDOMEN/PELVIS WITH CONCOMPARISONCTA chest August 04, 2020 revealing mediastinal adenopathy atelectasis versus pneumonia in the right middle lobe and a tiny nodule in the right lower lobeTECHNIQUEMultiple axial images of the abdomen and pelvis were obtained from the lung bases to the pubic symphysis after the administration of IV contrast. Dose reduction techniques including Automated Exposure Control (AEC) and adjustment of mA and kV were utilized.FINDINGSThe visualized portions of the lung bases are remarkable in that the right middle lobe infiltrate or atelectasis has improved slightly when compared to the August 04, 2020 study. The tiny nodule in the right lung base is stable measuring about 4 mm. No pleural effusion is observed.. The liver, spleen, pancreas, kidneys, are unremarkable in their CT appearance. There are bilateral adrenal masses that are necrotic larger in the left smaller on the right. These have increased in size when compared to the last study in July of 2020. The low density left adrenal mass measures 2.2 by 3.1 cm. The smaller low density right adrenal mass measures 1.5 by 1.5 cm. The gallbladder is distended and contains several small stones and there is gallbladder wall edema without pericystic inflammatory stranding. No free fluid is seen surrounding the liver.. No significant mesenteric lymphadenopathy or stranding can be observed. No free fluid or free air is seen within the abdomen. The abdominal aorta and IVC are normal. There is no aneurysm or retroperitoneal adenopathy. No bowel wall thickening or bowel dilatation is present. The colon is unremarkable other than diverticulosis noted within the sigmoid colon without diverticulitis.. The urinary bladder is grossly unremarkable. The bony structures are grossly intact.IMPRESSIONCholelithiasis with gallbladder wall thickening and gallbladder distension but no perinephric inflammatory blurring findings suggesting chronic coli cystitis.Bilateral adrenal enlargement left greater than right central low-attenuation finding suspicious for adrenal masses or metastases.Mild diverticulosis in the descending and sigmoid colon without diverticulitis. The remainder the bowel is normal.No identifiable source of neoplasm is seen in the abdomen or on review of the chest CT. Again that the low density left larger than right necrotic masses are suspicious. The atelectasis/infiltrate in the right middle lobe anteriorly shows mild improvement compared to the July study. The tiny nodule in the right lower lobe at 4 mm is stable.Electronically signed by: RICKY GARCIA (Sep 22, 2020 09:40:21)
[2020-09-22] MEDS: ZOSYN VIAL 3.375 GRAMS 3.375 G in NS 100 ML IV + SPIKE MINIBAG* 100 ML IV SCH ×2 (10:40→15:46)
[2020-09-22] MEDS: NS 1000 ML 1,000 ML IV SCH (11:07)
[2020-09-22 16:49] VITALS: BP 122/59
[2020-09-22] MEDS: VISTARIL PO PRN (18:44)
== END 2020-09-22 18:45 | disposition short-term general hospital (02) ==
LOC: MED/SURG
PROVIDERS: ADMIT Internal Medicine; ATTEND Internal Medicine
DX: R06.02 Shortness of breath; E27.8 Other specified disorders of adrenal gland; R59.0 Localized enlarged lymph nodes; K80.80 Other cholelithiasis without obstruction; R53.1 Weakness; Z20.822 Contact with and (suspected) exposure to COVID-19; R91.8 Other nonspecific abnormal finding of lung field; K21.9 Gastro-esophageal reflux disease without esophagitis; J44.9 Chronic obstructive pulmonary disease, unspecified; J18.9 Pneumonia, unspecified organism